=== PATIENT | female | born 1990 | race Caucasian/White ===

== ENCOUNTER 2020-02-11 23:32 | Observation (INO) | payer OTHER ==
[2020-02-12] MEDS ORDERED: MAG HYDROX/AL HYDROX/SIMETH SUSP 30 ML UDCUP PO ONE (01:08)
[2020-02-12] MEDS ORDERED: LIDOCAINE 2% VISCOUS SOLN 15 ML UDCUP PO ONE (01:08)
--- NOTE | 2020-02-12 01:10 | ER Document Report ---
ED Medical Screen (RME) - General Chief Complaint: Abdominal Pain Stated Complaint: SEVERE ABDOMINAL PAIN Primary Care Provider: DONALD WARREN PA-C [Primary Care Provider] - Follow up as needed - HPI Notes: 02/12/20 01:02 Rapid Medical Exam HPI:pt is a 29yo female c/o epigastric pain X 2 days. radiates to back. gnawing/stabbing pain. normal BM today. LMP 1.5 weeks ago. denies vaginal discharge or dysuria. no prior abdominal surgeries. 1 episode of vomiting, denies nausea. no appetite. no change in symptoms when she eats. saw her doctor today and was started on carafate for possible ulcers. she took it and a few hours later is when the pain worsened. Physical Exam: GENERAL: mild distress due to pain HEAD: Atraumatic, normocephalic. ENT: Moist mucous membranes. RESP: Respirations even and unlabored CV- Regular rate. NEURO: No focal neurological deficits. Moves all extremities spontaneously and on command. GI- voluntary guarding of epigastric region. My involvement in this patients care was limited to a rapid initial assessment. A comprehensive ED assessment and evaluation of the patient, analysis of test results, treatment, and completion of the medical decision making process will be performed by other ER providers. - Related Data Allergies/Adverse Reactions: No Known Allergies Allergy (Unverified 02/12/20 01:04) Physical Exam - Vital signs Vitals: Temp Pulse Resp BP Pulse Ox 98.6 F 121 H 22 H 136/83 H 97 02/12/20 00:28 02/12/20 00:28 02/12/20 00:28 02/12/20 00:28 02/12/20 00:28 Course - Vital Signs Vital signs: Temp Pulse Resp BP Pulse Ox 98.6 F 121 H 22 H 136/83 H 97 02/12/20 00:28 02/12/20 00:28 02/12/20 00:28 02/12/20 00:28 02/12/20 00:28 Doctor's Discharge - Discharge Referrals: DONALD WARREN PA-C [Primary Care Provider] - Follow up as needed
[2020-02-12 01:43] LABS: ABSOLUTE EOSINOPHILS # (AUTO) 0.2 10^3/uL (0.0-0.6); ABSOLUTE LYMPHOCYTES (AUTO) 1.5 10^3/uL (0.5-4.7); ABSOLUTE MONOCYTES (AUTO) 0.9 10^3/uL (0.1-1.4); ABSOLUTE NEUT (AUTO) 11.4 10^3/uL (1.7-8.2); BASOPHILS % (AUTO) 0.3 % (0-2); EOSINOPHILS % (AUTO) 1.3 % (0-6); HEMATOCRIT 40.3 % (36.0-47.0); HEMOGLOBIN 13.2 g/dL (12.0-15.5); MEAN CORPUSCULAR HEMOGLOBIN 28.4 pg (27.0-33.4); MEAN CORPUSCULAR HGB CONC 32.9 g/dL (32.0-36.0); MEAN CORPUSCULAR VOLUME 86 fl (80-97); MONOCYTES % (AUTO) 6.6 % (3-13); PLATELET COUNT 230 10^3/uL (150-450); RED BLOOD COUNT 4.66 10^6/uL (3.72-5.28); RED CELL DISTRIBUTION WIDTH 13.6 % (11.5-14.0); SEGMENTED NEUTROPHILS % (AUTO) 80.8 % (42-78); TOTAL CELLS COUNTED % (AUTO) 100 %; WHITE BLOOD COUNT 14.1 10^3/uL (4.0-10.5)
[2020-02-12 01:53] LABS: APPEARANCE,URINE SLIGHTLY-CLOUDY; BILIRUBIN,URINE NEGATIVE (NEGATIVE); COLOR,URINE AMBER; GLUCOSE, URINE NEGATIVE (NEGATIVE); KETONES,URINE TRACE mg/dL (NEGATIVE); LEUKOCYTE ESTERASE,URINE NEGATIVE (NEGATIVE); NITRITE,URINE NEGATIVE (NEGATIVE); PROTEIN,URINE 30 mg/dL (NEGATIVE); URINE SPECIFIC GRAVITY 1.018
[2020-02-12 01:59] LABS: ALKALINE PHOSPHATASE 109 U/L (38-126); ANION GAP 11 (5-19); ASPARTATE AMINO TRANSFERASE 139 U/L (14-36); BILIRUBIN,DIRECT 0.9 mg/dL (0.0-0.4); BILIRUBIN,TOTAL 1.5 mg/dL (0.2-1.3); BLOOD UREA NITROGEN 9 mg/dL (7-20); CALCIUM 9.3 mg/dL (8.4-10.2); CARBON DIOXIDE 26 mmol/L (22-30); CHLORIDE 102 mmol/L (98-107); GLUCOSE 167 mg/dL (75-110)
--- NOTE | 2020-02-12 09:23 | RADIOLOGY REPORT (SQ) ---
EXAM DESCRIPTION: CT ABD/PELVIS WITH IV ONLY<Procedure Description>CT ABD/PELVIS WITH IV ONLY IMAGES COMPLETED DATE/TIME: 02/12/2020 9:10 am<Completed Time>02/12/2020 9:10 am REASON FOR STUDY: severe epigastric pain<Reason For Exam>severe epigastric pain <ICD10 Code1> <ICD10 Code2> <ICD10 Code3> <ADM DX> COMPARISON: None. TECHNIQUE: CT scan of the abdomen and pelvis performed using helical scanning technique with dynamic intravenous contrast injection. No oral contrast. Images reviewed with lung, soft tissue, and bone w indows. Reconstructed coronal and sagittal MPR images reviewed. Delayed images for evaluation of the urinary system also acquired. All images stored on PACS. All CT scanners at this facility use dose modulation, iterative reconstruction, and/or weight based d osing when appropriate to reduce radiation dose to as low as reasonably achievable (ALARA). [facility]: Dose Right [facility]: CareDose [facility]: Dose Right [facility]: Teradose 4D [facility]: Smart [employer] CONTRAST TYPE AND DOSE: contrast/concentration: Isovue 350.00 mmol/ml; Total Contrast Delivered: 99. 0 ml; Total Saline Delivered: 27.9 ml<[facility] Contrast>contrast/concentration: Isovue 350.00 mmol/ml; Tot al Contrast Delivered: 99.0 ml; Total Saline Delivered: 27.9 ml RENAL FUNCTION: GFR > 60. RADIATION DOSE: CT Rad equipment meets quality standard of care and radiation dose reduction techniq ues were employed. CTDIvol: NaN - NaN mGy. DLP: 0 mGy-cm.<RADIATION DOSE>CT Rad equipment meets quali ty standard of care and radiation dose reduction techniques were employed. CTDIvol: NaN - NaN mGy. DL P: 0 mGy-cm.<[facility] mGy>. LIMITATIONS: None. FINDINGS: LOWER CHEST: No significant findings. LIVER: Normal size. No enhancing masses. Mild periportal edema. SPLEEN: Normal size. No focal lesions. PANCREAS: No masses identified. No significant calcifications. No adjacent inflammation or peripancre atic fluid collections. Pancreatic duct not dilated. GALLBLADDER: No calcified stones. Moderate gallbladder wall thickening and inflammatory changes sugg esting cholecystitis. ADRENAL GLANDS: No significant masses. RIGHT KIDNEY AND URETER: No cysts identified. No solid masses identified. No calcified stones. No hyd ronephrosis or hydroureter. LEFT KIDNEY AND URETER: No cysts identified. No solid masses identified. No calcified stones. No hydr onephrosis or hydroureter. AORTA AND VESSELS: No aneurysm. No dissection. Renal arteries, SMA, celiac without significant stenos is. RETROPERITONEUM: No bulky retroperitoneal adenopathy. BOWEL AND PERITONEAL CAVITY: No obstruction or inflammatory changes. No free fluid. APPENDIX: Normal. PELVIS: Small amount of free fluid. Unremarkable bladder. ABDOMINAL WALL: No masses. No hernias. BONES: No acute findings. OTHER: No other significant finding. IMPRESSION: Moderate gallbladder wall thickening and inflammatory changes suggesting cholecystitis. TECHNICAL DOCUMENTATION: JOB ID: [id number]<Job ID>[id number] [place]- Quality ID # [id number]: Final reports with documentation of one or more dose reduction techniques (e.g., Au tomated exposure control, adjustment of the mA and/or kV according to patient size, use of iterative reconstruction technique) 2010 [employer]- All Rights Reserved Reading location - IP/workstation name: [facility]
[2020-02-12] MEDS ORDERED: ONDANSETRON HCL INJ/PF 4 MG/2 ML SDV IV ONE (09:34)
[2020-02-12] MEDS ORDERED: FENTANYL CITRATE INJ/PF 100 MCG/2 ML AMPUL IV ONE (09:35)
[2020-02-12] MEDS ORDERED: NORMAL SALINE 1000 ML 1,000 ML IV ONE (09:44)
--- NOTE | 2020-02-12 09:45 | ER Document Report ---
ED General - General Chief Complaint: Abdominal Pain Stated Complaint: SEVERE ABDOMINAL PAIN Time Seen by Provider: 02/12/20 08:43 Primary Care Provider: DONALD WARREN PA-C [Primary Care Provider] - Follow up as needed - HPI Notes: Chief complaint: Epigastric pain History of present illness: 29-year-old female is intermittently had mild epigastric pain for several weeks. This has become especially bad within the past 3 days. She saw her primary care physician and was given a prescription for Carafate and told that she might have an early ulceration. Her pain became more severe and she is come to the emergency department. She notes radiation of pain through the side of the back. She said some mild nausea and has vomited once. No fever chills. No dysuria. No prior abdominal surgery. No regular medications. No known allergies. Denies use of tobacco or alcohol. Current pain intensity is rated 6/10. She had been given a GI cocktail by triage provider and she says this is not helped her symptoms at all. - Related Data Allergies/Adverse Reactions: No Known Allergies Allergy (Unverified 02/12/20 01:04) Past Medical History - General Information source: Patient, Relative - Social History Smoking Status: Never Smoker Frequency of alcohol use: Rare Drug Abuse: None Lives with: Spouse/Significant other Family History: Reviewed & Not Pertinent Patient has homicidal ideation: No - Medical History Medical History: Negative Surgical Hx: Negative Review of Systems - Review of Systems Notes: Constitutional: Negative for fever. HENT: Negative for sore throat. Eyes: Negative for visual changes. Cardiovascular: Negative for chest pain. Respiratory: Negative for shortness of breath. Gastrointestinal: As per HPI . Genitourinary: Negative for dysuria. Musculoskeletal: Negative for back pain. Skin: Negative for rash. Neurological: Negative for headaches, weakness or numbness. 10 point ROS negative except as marked above and in HPI. Physical Exam - Vital signs Vitals: Temp Pulse Resp BP Pulse Ox 98.6 F 121 H 22 H 136/83 H 97 02/12/20 00:28 02/12/20 00:28 02/12/20 00:28 02/12/20 00:28 02/12/20 00:28 - Notes Notes: GENERAL: Moderately obese female approximately stated age appearing moderately uncomfortable. SKIN: Good turgor no rashes. HEAD: Normocephalic atraumatic. EYES: PERRLA. EOMI. Conjunctivae and sclerae clear. EARS: CANALS AND TMS CLEAR. NOSE: CLEAR. MOUTH: Moist mucosa. Good dentition. No stridor or edema. No drooling. NECK: Supple. No masses or thyromegaly. No adenopathy. Carotids 2+ without bruits. No JVD. BACK: Symmetrical without tenderness. CHEST: Respirations unlabored. Breath sounds clear and symmetrical. HEART: Tachycardic. Regular rhythm. No murmur gallop or rub. ABDOMEN: Moderately tender epigastrium. Obese. Soft without masses, organomegaly or rebound. Bowel sounds normally active. No bruits. GENITALIA: Deferred. EXTREMITIES: No edema. No calf tenderness. Cap refill less than 1.5 seconds. Dorsalis pedis and posterior tibial pulses 3+ and symmetrical. NEUROLOGICAL: GCS 15. Alert and oriented x3. Normal gait. Fluent speech. Cranial nerves II through XII intact. Sensorimotor and cerebellar normal. Normal tone. PSYCHIATRIC: Appropriate affect. Course - Re-evaluation Re-evalutation: 02/12/20 11:08 IV normal saline. NPO. IV fentanyl and Zofran. IV Zosyn. Imaging confirms acute cholecystitis which is consistent with clinical presentation. Discussed with Dr. Gibbs from surgery and he will admit - Vital Signs Vital signs: Temp Pulse Resp BP Pulse Ox 98.1 F 104 H 16 149/97 H 100 02/12/20 06:25 02/12/20 06:25 02/12/20 06:25 02/12/20 06:25 02/12/20 06:25 - Laboratory Results Result Diagrams: 02/12/20 01:20 02/12/20 01:20 Laboratory Results Interpreted: 02/12/20 02/12/20 02/12/20 01:20 01:20 01:30 WBC 14.1 H Lymph % (Auto) 11.0 L Absolute Neuts (auto) 11.4 H Seg Neutrophils % 80.8 H Glucose 167 H Total Bilirubin 1.5 H Direct Bilirubin 0.9 H AST 139 H ALT 89 H Urine Protein 30 H Urine Ketones TRACE H Urine Blood MODERATE H Urine Urobilinogen 4.0 H Critical Laboratory Results Reviewed: Yes Attending or Supervising Physician who Reviewed Labs: SHIRA BROWN - Radiology Results Radiology Results Interpreted: 02/12/20 09:45 Abdomen/Pelvis CT 02/12/20 01:15 IMPRESSION: Moderate gallbladder wall thickening and inflammatory changes suggesting cholecystitis. Critical Radiology Results Reviewed: Yes Attending or Supervising Physician who Reviewed Radiology: SHIRA BROWN Discharge - Discharge Clinical Impression: Acute cholecystitis Condition: Good Disposition: ADMITTED INPATIENT Admitting Provider: Dr. Hernandez Unit Admitted: OR Referrals: DONALD WARREN PA-C [Primary Care Provider] - Follow up as needed
[2020-02-12] MEDS ORDERED: PIPERACILLIN/TAZOBACTAM 3.375 GM VIAL IV ONE (11:05)
--- NOTE | 2020-02-12 11:07 | RADIOLOGY REPORT (SQ) ---
EXAM DESCRIPTION: U/S ABDOMEN LIMITED W/O DOP IMAGES COMPLETED DATE/TIME: 02/12/2020 10:41 am REASON FOR STUDY: RUQ pain COMPARISON: CT dated 02/12/2020. TECHNIQUE: Dynamic and static grayscale images acquired of the abdomen and recorded on PACS. Mike espraza selected color Doppler and spectral images recorded. LIMITATIONS: None. FINDINGS: PANCREAS: No masses. Visualized pancreatic duct normal caliber. LIVER: No masses. Echotexture normal. LIVER VASCULATURE: Normal directional flow of the main portal vein and hepatic veins. GALLBLADDER: Gallstones. Diffuse gallbladder wall thickening, measuring 7.0 mm. No pericholecystic f luid. ULTRASOUND-DETECTED SANCHES'S SIGN: Negative. INTRAHEPATIC DUCTS AND COMMON DUCT: CBD and intrahepatic ducts normal caliber. No filling defects. INFERIOR VENA CAVA: Normal flow. AORTA: No aneurysm. RIGHT KIDNEY: Normal size. Normal echogenicity. No solid or suspicious masses. No hydronephrosis. No calcifications. PERITONEAL AND RIGHT PLEURAL SPACE: No ascites or effusions. OTHER: No other significant findings. IMPRESSION: GALLSTONES WITH DIFFUSE GALLBLADDER WALL THICKENING. NO PERICHOLECYSTIC FLUID. NO BILI BASIL DILATION. TECHNICAL DOCUMENTATION: JOB ID: [id number] 2010 [employer]- All Rights Reserved Reading location - IP/workstation name: [email or web address]
[2020-02-12] MEDS ORDERED: ONDANSETRON HCL INJ/PF 4 MG/2 ML SDV IV PRN ×2 (11:48→15:52)
--- NOTE | 2020-02-12 11:55 | PDOC H&P ---
History of Present Illness Admission Date/PCP: 02/12/20 11:30 DONALD WARREN PA-C Patient complains of: Abdominal pain History of Present Illness: SAFIA CHICAS is a 29 year old female Presents emergency department via ground rescue complaining of several day history of abdominal pain, nausea, anorexia, and quadrant tenderness. She is seen in the emergency department where she had a CT scan of the abdomen and pelvis which showed findings consistent with acute cholecystitis due to thickened gallbladder wall. Gallbladder ultrasound confirmed CT scan findings, normal intra and extrahepatic biliary duct diameter, and thickened gallbladder wall with multiple gallstones. Surgery was consulted patient was advised admission. Strong family history of gallbladder disease in patient's mother. Past Medical History Past Medical History: Obesity, borderline diabetes, reactive airway disease Past Surgical History Past Surgical History: [place] teeth extraction Social History Lives with: Spouse/Significant other Smoking Status: Never Smoker Electronic Cigarette use?: No Hx Recreational Drug Use: No Hx Prescription Drug Abuse: No Family History Family History: Reviewed & Not Pertinent, Other - Gallbladder disease Parental Family History Reviewed: Yes Children Family History Reviewed: Yes Sibling(s) Family History Reviewed.: Yes Medication/Allergy Home Medications: Bupropion HCl [Bupropion Xl] 150 mg PO BID 02/12/20 Sucralfate [Carafate 1 gm Tablet] 1 gm PO ACHS 02/12/20 Allergies/Adverse Reactions: No Known Allergies Allergy (Unverified 02/12/20 01:04) Review of Systems Constitutional: PRESENT: as per HPI Eyes: ABSENT: visual disturbances Ears: ABSENT: hearing changes Cardiovascular: ABSENT: chest pain, dyspnea on exertion, edema, orthropnea, palpitations Respiratory: PRESENT: as per HPI, other - Occasionally has shortness of breath with exertion. ABSENT: cough, hemoptysis Musculoskeletal: ABSENT: joint swelling Integumentary: ABSENT: rash, wounds Neurological: ABSENT: abnormal gait, abnormal speech, confusion, dizziness, focal weakness, syncope Psychiatric: ABSENT: anxiety, depression, homidical ideation, suicidal ideation Endocrine: ABSENT: cold intolerance, heat intolerance, polydipsia, polyuria Physical Exam Vital Signs: Temp Pulse Resp BP Pulse Ox 97.9 F 90 16 124/73 100 02/12/20 11:21 02/12/20 11:21 02/12/20 06:25 02/12/20 11:21 02/12/20 11:21 Intake & Output 02/11/20 02/12/20 02/13/20 06:59 06:59 06:59 Weight 119.8 kg General appearance: PRESENT: no acute distress Head exam: PRESENT: normocephalic Eye exam: PRESENT: EOMI Mouth exam: PRESENT: dry mucosa Neck exam: PRESENT: full ROM Respiratory exam: PRESENT: clear to auscultation aide Cardiovascular exam: PRESENT: RRR Pulses: PRESENT: normal carotid pulses, normal radial pulses GI/Abdominal exam: PRESENT: other - Tender right upper quadrant with guarding. No rigidity. Rectal exam: PRESENT: deferred Gentrourinary exam: PRESENT: ecchymosis Musculoskeletal exam: PRESENT: other - Generalized adiposity Neurological exam: PRESENT: oriented to person, oriented to place, oriented to time, oriented to situation Psychiatric exam: PRESENT: appropriate affect Skin exam: PRESENT: dry Results Laboratory Results: 02/12/20 01:20 02/12/20 01:20 02/12/20 02/12/20 02/12/20 01:20 01:20 01:30 WBC 14.1 H RBC 4.66 Hgb 13.2 Hct 40.3 MCV 86 MCH 28.4 MCHC 32.9 RDW 13.6 Plt Count 230 Seg Neutrophils % 80.8 H Sodium 138.6 Potassium 4.0 Chloride 102 Carbon Dioxide 26 Anion Gap 11 BUN 9 Creatinine 1.01 Est GFR ( Amer) > 60 Glucose 167 H Calcium 9.3 Total Bilirubin 1.5 H AST 139 H Alkaline Phosphatase 109 Total Protein 7.0 Albumin 4.0 Lipase 134.5 Urine Color PHILIPP Urine Appearance SLIGHTLY-CLOUDY Urine pH 5.0 Ur Specific [place] 1.018 Urine Protein 30 H Urine Glucose (UA) NEGATIVE Urine Ketones TRACE H Urine Blood MODERATE H Urine Nitrite NEGATIVE Ur Leukocyte Esterase NEGATIVE Urine WBC (Auto) 16 Urine RBC (Auto) 2 Impressions: Abdomen/Pelvis CT 02/12/20 01:15 IMPRESSION: Moderate gallbladder wall thickening and inflammatory changes suggesting cholecystitis. Abdomen Ultrasound 02/12/20 09:35 IMPRESSION: GALLSTONES WITH DIFFUSE GALLBLADDER WALL THICKENING. NO PERICHOLECYSTIC FLUID. NO BILIARY DILATION. Assessment & Plan - Diagnosis (1) Acute cholecystitis Is this a current diagnosis for this admission?: Yes Plan: Impression: Acute cholecystitis, with cholelithiasis, mild elevation of liver function studies all clinically and radiographically consistent with gallbladder disease; low suspicion for, bile duct stone. Plan: 1. Admit, n.p.o., IV fluids, IV antibiotics 2. Rapid Covid test 3. Plan for interval laparoscopic, possible open cholecystectomy, possible drain, possible intraoperative cholangiogram, today, Friday, February [address] Gibbs (2) Reactive airway disease Is this a current diagnosis for this admission?: Yes (3) Elevated LFTs Is this a current diagnosis for this admission?: Yes (4) Morbid obesity Is this a current diagnosis for this admission?: Yes - Time Time Spent: 30 to 50 Minutes Critical Time spent with patient: Less than 15 minutes Smoking Cessation Education: 3 to 10 minutes Medications reviewed and adjusted accordingly: Yes Anticipated Discharge Disposition: Home, Self Care Anticipated Discharge Timeframe: within 48 hours
[2020-02-12] MEDS: RINGERS SOLUTION,LACTATED 1,000 ML IV PRN ×2 (12:46→21:15)
[2020-02-12] MEDS ORDERED: KETOROLAC TROMETHAMINE INJ/PF 30 MG/1 ML SDV IV ONE (12:58)
[2020-02-12] MEDS ORDERED: KETOROLAC TROMETHAMINE INJ/PF 30 MG/1 ML SDV ONE (12:59)
[2020-02-12] MEDS ORDERED: LIDOCAINE 2% INJ-PF (20 MG/ML) 10 ML AMPUL ONE (13:19)
[2020-02-12] MEDS ORDERED: DEXAMETHASONE SOD PHOSPHATE INJ 4 MG/1 ML VIAL ONE (13:20)
[2020-02-12] MEDS ORDERED: MIDAZOLAM 2 MG/2 ML INJ ONE (13:20)
[2020-02-12] MEDS ORDERED: FENTANYL CITRATE INJ/PF 100 MCG/2 ML AMPUL ONE (13:20)
[2020-02-12] MEDS ORDERED: ONDANSETRON HCL INJ/PF 4 MG/2 ML SDV ONE (13:20)
[2020-02-12] MEDS ORDERED: HYDROMORPHONE HCL INJ/PF 2 MG/ML AMPULE ONE (13:20)
[2020-02-12] MEDS ORDERED: PROPOFOL INJ 200 MG/20 ML VIAL IV ONE (13:20)
[2020-02-12] MEDS ORDERED: BUPIVACAINE HCL 0.25 % INJ/PF (2.5 MG/1 ML) 30 ML VIAL ONE (13:37)
[2020-02-12] MEDS ORDERED: NEOSTIGMINE METHYLSULFATE 10 MG/10 ML VIAL ONE (14:29)
[2020-02-12] MEDS ORDERED: GLYCOPYRROLATE 1 MG/5 ML VIAL ONE (14:29)
[2020-02-12] MEDS ORDERED: PROMETHAZINE HCL INJ 25 MG/1 ML VIAL IV PRN ×2 (14:43)
[2020-02-12] MEDS ORDERED: MORPHINE SULFATE 10 MG/ML INJ IV PRN (14:43)
[2020-02-12] MEDS ORDERED: FENTANYL CITRATE INJ/PF 100 MCG/2 ML AMPUL IV PRN ×3 (14:43)
[2020-02-12] MEDS ORDERED: OXYCODONE-ACETAMINOPHEN 5-325 MG TABLET PO PRN ×2 (14:43)
[2020-02-12] MEDS ORDERED: DIPHENHYDRAMINE HCL 50 MG/ML VIAL IV PRN (14:43)
[2020-02-12] MEDS ORDERED: SUGAMMADEX SODIUM 200 MG/2 ML SDV IV ONE (15:14)
[2020-02-12] MEDS ORDERED: KETOROLAC TROMETHAMINE INJ/PF 30 MG/1 ML SDV IV PRN (15:52)
--- NOTE | 2020-02-12 16:02 | Operative Report ---
Operative Report DATE OF SURGERY: 02/12/20 PREOPERATIVE DIAGNOSIS: 1. Acute cholecystitis with cholelithiasis. 2. Morbid obesity POSTOPERATIVE DIAGNOSIS: Same OPERATION: Laparoscopic cholecystectomy SURGEON: NORMA GRACE ANESTHESIA: GA TISSUE REMOVED OR ALTERED: 1 gallbladder with multiple stones COMPLICATIONS: None ESTIMATED BLOOD LOSS: 100 cc INTRAOPERATIVE FINDINGS: See below PROCEDURE: The patient was taken to the main holding area to the operating room where general anesthesia was induced. Arms were abducted, and the abdomen prepped and draped in sterile fashion with Betadine. Surgical plan surgical timeout were conducted. Markings were made on the skin for for port laparoscopy. All 4 sites were anesthetized with 1% plain lidocaine. A supraumbilical vertical incision was made with a #15 blade, Veress needle inserted the peritoneal cavity, pneumoperitoneum was established. Veress needle was removed, 5 mm port was inserted and a 5 mm flexible scope was inserted. Using the flexible 5 mm Endo I, 3 additional ports were placed one in the subxiphoid and 2 in the subcostal position. There was no evidence of vascular or visceral injury. Findings were significant for an acutely inflamed gallbladder, with the gastrocolic omentum stuck to the entire inferior surface of the gallbladder. Photos were taken. Using a combination of blunt, hook cautery, suction, and LigaSure dissection, the greater omentum, and associated adhesions were taken off of the inferior surface of the gallbladder. This was an extremely tedious process as the plane of dissection was not well-defined. We worked in a methodical fashion elevating the fundus of the gallbladder up over the liver, and continually the gallbladder from the attached omentum. Eventually we had all of the surrounding tissue from the midportion and eventually the infundibulum of the g allbladder. Of note this was a C shaped gallbladder, very large and distended with an extensive volume of stones in the infundibulum. At this point we took the gallbladder down from the fundus using hook cautery dissection. Bleeding was minimal. We stayed in the appropriate plane. We walked all the way down the anterior surface of the gallbladder, opening up the plate carefully and methodically. Eventually we had the gallbladder suspended solely from its neck. This was a very widened, elongated neck. Multiple photos were taken. The cystic artery was visualized, photographed, clipped twice proximally once distally and divided with scissors. Again we reviewed her anatomy and were confident that we had achieved what we intended which was to free the gallbladder up from all surrounding tissue. There was a dense inflammatory peel on the medial side of the gallbladder which was divided to plate the gallbladder completely. Again we came across no other structures other than the cystic artery. At this point I divided the gallbladder from its neck with dissection. The gallbladder and stones placed to the side. We now excavated all remaining stones from the neck of the gallbladder. I subsequently resected the neck of the gallbladder so that we were now left with a widened cystic duct stump. More stones were evacuated. Despite manipulation of the gallbladder stump, and the more medial tissue which would have covered common bile duct, I was not able to get any bile to egressed from the cystic duct stump. We now brought onto the field a Endobag, opened our 5 mm supraumbilical port site, placed in the Endobag into the peritoneal cavity, then retrieved the gallbladder and stones and small portion of inflammatory peel. The specimen was removed from the peritoneal cavity, and sent to pathology. We now returned the peritoneal cavity and check the cystic duct stump. Again there was no evidence of bile leaking from it or anywhere else. We secured the stump with a single application of a 0 PDS Endoloop. Photos were taken. At this point felt the operation was complete. No indication for drain. Final photos were taken. Sponge and needle counts are correct. All ports removed under direct visualization, pneumoperitoneum evacuated, supraumbilical fascial defect closed with 3 0 [id number] Vicryl sutures and all other incisions closed with 3-0 Vicryl 20 Steri-Strips.
[2020-02-12] MEDS: PIPERACILLIN SODIUM/TAZOBACTAM 3.375 GM in NORMAL SALINE 100 ML IV SCH ×2 (17:17→21:13)
[2020-02-12] MEDS: ACETAMINOPHEN INJ/PF 1000 MG/100 ML SDV IV SCH (17:28)
[2020-02-13] MEDS: ACETAMINOPHEN INJ/PF 1000 MG/100 ML SDV IV SCH ×2 (00:43→05:11)
[2020-02-13] MEDS: PIPERACILLIN SODIUM/TAZOBACTAM 3.375 GM in NORMAL SALINE 100 ML IV SCH (05:11)
[2020-02-13 10:29] VITALS: BP 117/71
--- NOTE | 2020-02-13 11:03 | PDOC DISCHARGE SUMMARY ---
General - Admit/Disc Date/PCP Admission Date/Primary Care Provider: 02/12/20 11:30 DONALD WARREN PA-C Discharge Date: 02/13/20 - Discharge Diagnosis Final Diagnosis: Acute cholecystitis with cholelithiasis - Assessment Summary: Patient is a 29-year-old white female presents to emergency department with acute onset abdominal pain right upper quadrant rating to the back. She was dylan luated by gallbladder ultrasonography and found to have gallstones, with findings consistent with acute cholecystitis. The patient admitted to the surgical service kept n.p.o. on IV fluids and antibiotics. To the operating room on February 10 where she underwent laparoscopic cholecystectomy. She had a inflamed gallbladder removed uneventfully without drain placement. Procedure dictated separately. Postoperatively she felt well, was started on a diet and this was advanced and by the first postoperative day was ready for discharge home. Patient was given a prescription for Diflucan in anticipation of possible fungal infection. She will follow-up with [facility] in 1 to 2 weeks. She will take Tylenol as needed pain alternating with Motrin. She was given a return to work note for February 19. - Additional Information Resuscitation Status: Full Code Discharge Diet: As Tolerated Discharge Activity: Balance Activity w/Rest, No Lifting Over 10 Pounds Referrals: NORMA GRACE MD [ACTIVE STAFF] - (02/11 s/p brad [place]) Home Medications: Bupropion HCl [Bupropion Xl] 150 mg PO BID 02/12/20 Sucralfate [Carafate 1 gm Tablet] 1 gm PO ACHS 02/12/20 History of Present Illiness History of Present Illness: SAFIA CHICAS is a 29 year old female Presents emergency department via ground rescue complaining of several day history of abdominal pain, nausea, anorexia, and quadrant tenderness. She is seen in the emergency department where she had a CT scan of the abdomen and pelvis which showed findings consistent with acute cholecystitis due to thickened gallbladder wall. Gallbladder ultrasound confirmed CT scan findings, normal intra and extrahepatic biliary duct diameter, and thickened gallbladder wall with multiple gallstones. Surgery was consulted patient was advised ad mission. Strong family history of gallbladder disease in patient's mother. Physical Exam Vital Signs: Temp Pulse Resp BP Pulse Ox 98.1 F 58 L 16 117/71 100 02/13/20 10:27 02/13/20 10:27 02/13/20 10:27 02/13/20 10:27 02/13/20 10:27 Intake & Output 02/12/20 02/13/20 02/14/20 06:59 06:59 06:59 Intake Total 4510 120 Output Total 10 Balance 4500 120 Weight 119.8 kg 122.1 kg Results Laboratory Results: WBC 14.1 10^3/uL (4.0-10.5) H 02/12/20 01:20 RBC 4.66 10^6/uL (3.72-5.28) 02/12/20 01:20 Hgb 13.2 g/dL (12.0-15.5) 02/12/20 01:20 Hct 40.3 % (36.0-47.0) 02/12/20 01:20 MCV 86 fl (80-97) 02/12/20 01:20 MCH 28.4 pg (27.0-33.4) 02/12/20 01:20 MCHC 32.9 g/dL (32.0-36.0) 02/12/20 01:20 RDW 13.6 % (11.5-14.0) 02/12/20 01:20 Plt Count 230 10^3/uL (150-450) 02/12/20 01:20 Lymph % (Auto) 11.0 % (13-45) L 02/12/20 01:20 [place] % (Auto) 6.6 % (3-13) 02/12/20 01:20 Eos % (Auto) 1.3 % (0-6) 02/12/20 01:20 Baso % (Auto) 0.3 % (0-2) 02/12/20 01:20 Absolute Neuts (auto) 11.4 10^3/uL (1.7-8.2) H 02/12/20 01:20 Absolute Lymphs (auto) 1.5 10^3/uL (0.5-4.7) 02/12/20 01:20 Absolute Monos (auto) 0.9 10^3/uL (0.1-1.4) 02/12/20 01:20 Absolute Eos (auto) 0.2 10^3/uL (0.0-0.6) 02/12/20 01:20 Absolute Basos (auto) 0.0 10^3/uL (0.0-0.2) 02/12/20 01:20 Seg Neutrophils % 80.8 % (42-78) H 02/12/20 01:20 Sodium 138.6 mmol/L (137-145) 02/12/20 01:20 Potassium 4.0 mmol/L (3.6-5.0) 02/12/20 01:20 Chloride 102 mmol/L (98-107) 02/12/20 01:20 Carbon Dioxide 26 mmol/L (22-30) 02/12/20 01:20 Anion Gap 11 (5-19) 02/12/20 01:20 BUN 9 mg/dL (7-20) 02/12/20 01:20 Creatinine 1.01 mg/dL (0.52-1.25) 02/12/20 01:20 Est GFR ( Amer) > 60 (>60) 02/12/20 01:20 Est GFR (MDRD) Non-Af > 60 (>60) 02/12/20 01:20 Glucose 167 mg/dL (75-110) H 02/12/20 01:20 Calcium 9.3 mg/dL (8.4-10.2) 02/12/20 01:20 Total Bilirubin 1.5 mg/dL (0.2-1.3) H 02/12/20 01:20 Direct Bilirubin 0.9 mg/dL (0.0-0.4) H 02/12/20 01:20 Neonat Total Bilirubin Not Reportable 02/12/20 01:20 Neonat Direct Bilirubin Not Reportable 02/12/20 01:20 Neonat Indirect Bili Not Reportable 02/12/20 01:20 AST 139 U/L (14-36) H 02/12/20 01:20 ALT 89 U/L (<35) H 02/12/20 01:20 Alkaline Phosphatase 109 U/L (38-126) 02/12/20 01:20 Total Protein 7.0 g/dL (6.3-8.2) 02/12/20 01:20 Albumin 4.0 g/dL (3.5-5.0) 02/12/20 01:20 Lipase 134.5 U/L (23-300) 02/12/20 01:20 Urine Color PHILIPP 02/12/20 01:30 Urine Appearance SLIGHTLY-CLOUDY 02/12/20 01:30 Urine pH 5.0 (5.0-9.0) 02/12/20 01:30 Ur Specific [place] 1.018 02/12/20 01:30 Urine Protein 30 mg/dL (NEGATIVE) H 02/12/20 01:30 Urine Glucose (UA) NEGATIVE mg/dL (NEGATIVE) 02/12/20 01:30 Urine Ketones TRACE mg/dL (NEGATIVE) H 02/12/20 01:30 Urine Blood MODERATE (NEGATIVE) H 02/12/20 01:30 Urine Nitrite NEGATIVE (NEGATIVE) 02/12/20 01:30 Urine Bilirubin NEGATIVE (NEGATIVE) 02/12/20 01:30 Urine Urobilinogen 4.0 mg/dL (<2.0) H 02/12/20 01:30 Ur Leukocyte Esterase NEGATIVE (NEGATIVE) 02/12/20 01:30 Urine WBC (Auto) 16 /HPF 02/12/20 01:30 Urine RBC (Auto) 2 /HPF 02/12/20 01:30 U Hyaline Cast (Auto) 2 /LPF 02/12/20 01:30 Squamous Epi Cells Auto 16 /HPF 02/12/20 01:30 Urine Mucus (Auto) MANY /LPF 02/12/20 01:30 Urine Ascorbic Acid NEGATIVE (NEGATIVE) 02/12/20 01:30 Urine HCG, Qual NEGATIVE (NEGATIVE) 02/12/20 01:30 Influenza A (RT-PCR) NEGATIVE (NEGATIVE) 02/12/20 10:55 Influenza B (RT-PCR) NEGATIVE (NEGATIVE) 02/12/20 10:55 RSV (RT-PCR) NEGATIVE (NEGATIVE) 02/12/20 10:55 SARS-CoV-2 Rap RNA(RT-PCR) NEGATIVE (NEGATIVE) 02/12/20 10:55 Impressions: Abdomen/Pelvis CT 02/12/20 01:15 IMPRESSION: Moderate gallbladder wall thickening and inflammatory changes suggesting cholecystitis. Abdomen Ultrasound 02/12/20 09:35 IMPRESSION: GALLSTONES WITH DIFFUSE GALLBLADDER WALL THICKENING. NO PERICHOLECYSTIC FLUID. NO BILIARY DILATION.
== END 2020-02-13 11:22 | disposition home or self-care (01) ==
LOC: ER 23:32 → EH 02-12 11:30 → INTOOBSV 02-12 11:30 → 4W 02-12 16:46
PROVIDERS: ADMIT Surgery; ATTEND Surgery
DX: K80.12 Calculus of gallbladder with acute and chronic cholecystitis without obstruction (principal); K66.0 Peritoneal adhesions (postprocedural) (postinfection); Z20.828 Contact with and (suspected) exposure to other viral communicable diseases; Z83.79 Family history of other diseases of the digestive system; E66.01 Morbid (severe) obesity due to excess calories; J45.909 Unspecified asthma, uncomplicated; R79.89 Other specified abnormal findings of blood chemistry; Z68.42 Body mass index [BMI] 45.0-49.9, adult
CPT/HCPCS: 99285; 96361; 96374; 96375; 36415; 83690; 85025; 0241U ×4; 81025; 80053; 81001; 88304 ×2; 76705; 74177; 47562; 49329; G0378 ×3; J2250; J1100; J3010; J3490 ×4; J1885; J2710; J1170; J2405; J7050 ×2; J7030; J7120; J2704; J2543 ×2; J0131 ×2; C9803; 790

== ENCOUNTER → 2020-02-11 | Outpatient (CLI) | payer OTHER ==
[2020-02-11 15:37] LABS: ABSOLUTE EOSINOPHILS # (AUTO) 0.2 10^3/uL (0.0-0.6); ABSOLUTE LYMPHOCYTES (AUTO) 2.7 10^3/uL (0.5-4.7); ABSOLUTE MONOCYTES (AUTO) 0.7 10^3/uL (0.1-1.4); ABSOLUTE NEUT (AUTO) 6.3 10^3/uL (1.7-8.2); BASOPHILS % (AUTO) 0.4 % (0-2); EOSINOPHILS % (AUTO) 2.1 % (0-6); HEMATOCRIT 39.2 % (36.0-47.0); MEAN CORPUSCULAR HEMOGLOBIN 28.7 pg (27.0-33.4); MEAN CORPUSCULAR HGB CONC 33.2 g/dL (32.0-36.0); MEAN CORPUSCULAR VOLUME 86 fl (80-97); MONOCYTES % (AUTO) 7.1 % (3-13); PLATELET COUNT 205 10^3/uL (150-450); RED BLOOD COUNT 4.54 10^6/uL (3.72-5.28); RED CELL DISTRIBUTION WIDTH 13.5 % (11.5-14.0); SEGMENTED NEUTROPHILS % (AUTO) 63.4 % (42-78); TOTAL CELLS COUNTED % (AUTO) 100 %; WHITE BLOOD COUNT 9.9 10^3/uL (4.0-10.5)
[2020-02-11 16:07] LABS: ALBUMIN 3.9 g/dL (3.5-5.0); ALKALINE PHOSPHATASE 56 U/L (38-126); ANION GAP 9 (5-19); ASPARTATE AMINO TRANSFERASE 26 U/L (14-36); BILIRUBIN,DIRECT 0.2 mg/dL (0.0-0.4); BILIRUBIN,TOTAL 0.7 mg/dL (0.2-1.3); BLOOD UREA NITROGEN 8 mg/dL (7-20); C-REACTIVE PROTEIN 47.9 mg/L (<10.0); CALCIUM 9.2 mg/dL (8.4-10.2); CARBON DIOXIDE 26 mmol/L (22-30); CHLORIDE 103 mmol/L (98-107); GLUCOSE 83 mg/dL (75-110); POTASSIUM 4.1 mmol/L (3.6-5.0); TOTAL PROTEIN 6.9 g/dL (6.3-8.2)
[2020-02-11 16:30] LABS: ERYTHROCYTE SEDIMENTATION RATE 33 mm/hr (0-20)
== END ==
LOC: OD 14:38
PROVIDERS: ATTEND Physician Assistant
DX: R10.10 Upper abdominal pain, unspecified (principal)
CPT/HCPCS: 36415; 80053; 85025; 85652; 86140